=== PATIENT | female | born 1930 | race Caucasian/White ===

== ENCOUNTER 2016-11-24 03:31 | Emergency (ER) | payer OTHER ==
[~2016-11-24] VITALS: Ht 147.3 cm; Wt 64.9 kg
[~2016-11-24 03:31] MED LIST: ADULT LOW DOSE81 MG PO; BENADRYL25 MG PO; CALCIUM OYSTER500 MG PO; CARDIZEM CD180 MG PO; CELEXA40 MG PO; DUONEB 2.5-0.5 M3 ML INH; FENOFIBRATE160 MG PO; FISH OIL 1,0001 EAC5 PO; GABAPENTIN 100100 MG PO; HYDROCHLOROTH12.5 M1 PO; HYDROCHLOROTH12.5 MG PO; HYDROCODON-ACE1 EAC5 PO; IRON325 PO; LISINOPRIL20 MG PO; LUMIGAN2.5 M1; LUMIGAN2.5 M1 OP; MUCINEX TA600 MG/TA2 PO; MULTIVITAMINS PO; NORCO 5-325 TA1 EACH PO; PACERONE 200 M200 M1 PO; PERCOCET 7.5-31 EACH PO; PRAVASTATIN SOD40 MG PO; PREDNISONE 20 M20 MG; SUDAFED30 MG; TOPROL XL50 MG PO
== END 2016-11-24 03:58 ==
LOC: ER 03:31
DX: S00.83XA Contusion of other part of head, initial encounter (principal); M19.90 Unspecified osteoarthritis, unspecified site; G25.81 Restless legs syndrome; F03.90 Unspecified dementia, unspecified severity, without behavioral disturbance, psychotic disturbance, mood disturbance, and anxiety; Z90.89 Acquired absence of other organs; Z90.49 Acquired absence of other specified parts of digestive tract; Z86.2 Personal history of diseases of the blood and blood-forming organs and certain disorders involving the immune mechanism; Z91.81 History of falling; W18.30XA Fall on same level, unspecified, initial encounter; Y93.89 Activity, other specified; Y92.89 Other specified places as the place of occurrence of the external cause; Y99.8 Other external cause status

== ENCOUNTER 2017-08-30 07:50 | Inpatient (IN) | payer OTHER ==
[~2017-08-30] VITALS: Ht 154.9 cm; Wt 61.2 kg
--- NOTE | ~2017-08-30 | EKG ---
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 : 1930 Requested By: Doyle Stern Order Number: [id number] MD: Tristan Clemons Measurements Intervals [place] Rate: 89 P: 42 CA: 185 QRS: 7 QRSD: 99 T: 60 QT: 399 QTc: 486 Interpretive Statements Sinus rhythm Borderline prolonged QT interval Compared to ECG 06/25/2015 07:53:12 No significant changes Electronically Signed On 08-30-2017 10:40:12 CDT by Tristan Clemons [email or web address] <ELECTRONICALLY SIGNED> By: Tristan Clemons MD, [facility] 08/30/17 1040 0852 1 Tristan Clemons MD, FACC /EPI
--- NOTE | ~2017-08-30 | HC ---
[facility] [place] [address] CONSULTATION Name: YARA PACE Room #: 203-P [facility] IN M.R.#: [id number] Admission: 08/30/17 Attend Phys: Andrew Pena DO Discharge: Date of : 30 Report #: [id number] THIS REPORT FOR: //name// CC: Andrew Pena Ann-Marie Adams REASON FOR CONSULTATION: I was asked to evaluate concerning sepsis. HISTORY OF PRESENT ILLNESS: The patient is an 87-year-old with underlying dementia who resides at a residential unit. She was found lying on the ground next to her bed early this morning. She is brought in by EMS to the Emergency Room. Found to have temperature of 38.1, hemodynamically stable. She was unable to give any significant history. She states at this time that she feels reasonably well. Denies any headache, cough, sputum, nausea, vomiting or diarrhea. I am not sure how accurate, however, her history is. PAST MEDICAL HISTORY: Pulmonary fibrosis, dementia, restless leg syndrome, anemia, arthritis, frequent falls, cataract surgery, cholecystectomy, tonsillectomy. ALLERGIES: None known. MEDICATIONS: As noted on her MAR, having previously been on prednisone. Unclear when that was stopped. Currently, has been on Celexa, Neurontin, Cardizem, DuoNeb, Pacerone, , [place], Synthroid, aspirin, was given vancomycin, Levaquin and Zosyn in the Emergency Room. FAMILY HISTORY: Noncontributory. SOCIAL HISTORY: Nonsmoker, no significant alcohol intake. REVIEW OF SYSTEMS: As noted above with no bony injuries noted. No skin issues. PHYSICAL EXAMINATION: VITAL SIGNS: She is currently afebrile, hemodynamically stable. She was alert and cooperative. She is on 4 liters of oxygen per nasal cannula. SKIN: Unremarkable. LYMPH: Unremarkable. HEENT: Edentulous. NECK: Supple. LUNGS: Crackles in the mid chest inferiorly bilaterally. No consolidation or rub. HEART: Regular without appreciable murmur. ABDOMEN: Soft, nontender, no hepatosplenomegaly or mass. EXTREMITIES: No peripheral edema. NEUROLOGIC: Nonfocal. [facility] [address] [place] [address] CONSULTATION Name: YARA PACE Room #: 203-P [facility] IN .R.#: [id number] Admission: 08/30/17 Attend Phys: Andrew Pena DO Discharge: Date of : 30 Report #: [id number] LABORATORY STUDIES: On room air ABG showed a pO2 of 34, pCO2 of 41, pH 7.42. Urinalysis had bacteriuria and pyuria. Blood cultures and urine cultures are pending. Lactate was 1.1. Hemoglobin 8.6, platelet count 811,000. WBC 20,000, 81% segs. BNP was 1189. Troponin negative. Sodium 133, potassium 4.5, bicarbonate 28, creatinine 0.9. Liver function test normal. CT of the head negative. Chest x-ray, bilateral infiltrates with increased alveolar infiltrate in the left lower lung. IMPRESSION: An 87-year-old with underlying dementia with healthcare-associated infection, urinary tract and pneumonia considered at this time. I do not see any intra-abdominal issues otherwise. No evidence of cellulitis. Unclear if she has had a syncopal episode. We will treat for aspiration and healthcare-associated urinary tract infection. RECOMMENDATIONS: We will continue with vancomycin and Zosyn, Tamiflu. The patient has had a dose of Levaquin. We will check urine antigen, viral respiratory panel. Await urine culture and blood culture. Follow up CBC and chest x-ray. <ELECTRONICALLY SIGNED> By: Chuck Betancourt MD 08/31/17 1059 1155 1645 Chuck Betancourt MD /nt
--- NOTE | ~2017-08-30 | HC ---
[facility] [place] [address] CONSULTATION Name: YARA PACE Room #: 423-1 [facility] IN M.R.#: [id number] Admission: 08/30/17 Attend Phys: Andrew Pena DO Discharge: 09/10/17 Date of : 30 Report #: [id number] THIS REPORT FOR: //name// CC: Andrew Pena Ann-Marie Adams DATE OF SERVICE: 08/30/2017 IMPRESSION: 1. Healthcare-associated pneumonia. 2. Urinary tract infection. 3. Possible aspiration. 4. Dementia. 5. Leukocytosis. 6. Microcytic anemia. 7. Thrombocytosis. 8. Protein calorie malnutrition. 9. Acute respiratory failure. PLAN: IV fluids, antibiotics per ID, aerosol therapy, BiPAP p.r.n. HISTORY OF PRESENT ILLNESS: This is a very pleasant 87-year-old female who relates has had pneumonia before, found lying on floor next to her bed by report. The patient does not recall this. The patient complains of some shortness of breath. No definite chest pain, cough or sputum. CURRENT MEDICATIONS: Include Pacerone, diltiazem, aspirin, citalopram, Synthroid, vancomycin, Lovenox, Zosyn, gabapentin. PAST SURGICAL HISTORY: Includes cataract surgery, cholecystectomy, tonsillectomy. ALLERGIES: None known. SOCIAL HISTORY: . Negative tobacco, negative ETOH. FAMILY HISTORY: Negative for pulmonary disease. REVIEW OF SYSTEMS: History of hypertension, arthritis, chronic pain, hyperlipidemia, dementia, question pulmonary fibrosis and restless legs. PHYSICAL EXAMINATION: VITAL SIGNS: T-max 100.6, pulse 95, respirations 18, BP 124/56. EYES: Negative icterus. NECK: Negative JVD. LUNGS: Coarse. [facility] [address] [place] [address] CONSULTATION Name: YARA PACE Room #: 423-1 [facility] IN ..#: [id number] Admission: 08/30/17 Attend Phys: Andrew Pena DO Discharge: 09/10/17 Date of : 30 Report #: [id number] HEART: Regular. ABDOMEN: Bowel sounds present. EXTREMITIES: Showed no definite edema. LABORATORY DATA: A pH of 7.423, pCO2 of 41, pO2 of 34 on room air. Chest x-ray showed bilateral infiltrates, question fibrotic. CT head, no acute. INR 1.1. BUN 21, creatinine 0.9, albumin 2.5. Troponin less than 0.04. BNP 1189. White count 20.2, hemoglobin 8.6, platelets 811. We will follow closely with you. <ELECTRONICALLY SIGNED> By: Waqar Ricketts MD 09/12/17 2316 1804 11 Waqar Ricketts MD /nt
--- NOTE | ~2017-08-30 | DEA ---
[facility] [place] [address] SUMMARY Name: YARA PACE Room #: 423-1 ADM IN M.R.#: [id number] Admission: 08/30/17 Attend Phys: Andrew Pena DO Discharge: Date of : 30 Report #: [id number] THIS REPORT FOR: //name// CC: Andrew Pena Ann-Marie Adams DATE OF SERVICE: 09/10/2017 DATE AND TIME OF : 09/10/2017 at 11:57 a.m. HOSPITAL COURSE: The patient was an 87-year-old female with history of dementia, who presented to the ER status post fall. She was found lying next to her bed at her [facility] facility. The patient did require intubation due to acute hypoxemic respiratory failure secondary to pneumonia. Due to lack of improvement and after family meeting, it was decided to extubate her and provide comfort care only. She was extubated on 09/09/2017 and she did pass away under comfort care peacefully at the above date and time. The body was released to the family. <ELECTRONICALLY SIGNED> By: Andrew Pena DO 09/10/17 1236 1205 1220 Andrew Pena DO /nt
[2017-08-30 07:50] VITALS: BP 137/62
[2017-08-30 08:17] LABS: BE(vivo) 1.8 mmol/L (-2 to +3); HCO3 26.4 mmol/L (22.0-26.0); PCO2 41.3 mmHg (35.0-45.0); pH 7.423 (7.360-7.450); sO2 66.6 % (92.0-98.0)
[2017-08-30 08:25] LABS: HEMATOCRIT 28.9 % (37.0-47.0); HEMOGLOBIN 8.6 gm/dL (12.0-15.0); MCH 22.3 pg (26.0-34.0); MCHC 29.9 g/dL (28.0-37.0); MCV 74.4 fL (80.0-100.0); PLATELET COUNT 811 thou/uL (150-400); RBC 3.88 mil/uL (4.20-5.00); RDW 18.6 % (10.5-14.5); WBC 20.2 thou/uL (4.0-11.0)
[2017-08-30 08:38] LABS: CALCIUM 8.5 mg/dL (8.5-10.1); CREATININE 0.9 mg/dL (0.6-1.0); POTASSIUM 4.5 mmol/L (3.5-5.1)
[2017-08-30 08:39] LABS: APTT 23.7 Seconds (24.5-32.8); INR 1.1; PROTIME 10.8 Seconds (9.3-11.4)
[2017-08-30 08:44] LABS: ALBUMIN 2.5 g/dL (3.4-5.0); TOTAL BILIRUBIN 0.4 mg/dL (<0.1-1.0); TOTAL PROTEIN 7.6 g/dL (6.4-8.2)
[2017-08-30 08:46] LABS: URINE BILIRUBIN NEGATIVE (Negative); URINE BLOOD NEGATIVE (Negative); URINE COLOR YELLOW; URINE GLUCOSE-RANDOM* NEGATIVE (Negative); URINE KETONES NEGATIVE (Negative); URINE PROTEIN (DIPSTICK) TRACE (Negative); URINE UROBILINOGEN 0.2 E.U./dl (0.2-1.0)
[2017-08-30 08:47] LABS: URINE LEUKOCYTES-REFLEX 1+ (Negative); URINE NITRITE-REFLEX POSITIVE (Negative)
[2017-08-30 08:48] LABS: URINE CLARITY HAZY
[2017-08-30 08:50] LABS: ABSOLUTE NEUTROPHILS 16.4 thou/uL (1.4-8.2)
[2017-08-30 08:51] LABS: ANISOCYTOSIS 2+; HYPOCHROMASIA 2+; MICROCYTES 1+; POLYCHROMASIA OCCASIONAL
[2017-08-30 08:55] LABS: CASTS None Seen /LPF (None Seen); CRYSTALS None Seen /LPF (None Seen); SQUAMOUS 0-3 Few /LPF (0-3)
[2017-08-30 08:56] LABS: BACTERIA-REFLEX >30 Many /HPF (None Seen); URINE RBC None Seen /HPF (0-2); URINE WBC-REFLEX >25 Many /HPF (0-5)
[2017-08-30] MEDS ORDERED: XALATAN2.5 ML OPHTHALMIC (09:03)
[2017-08-30] MEDS ORDERED: NORCO 5-325 TA1 EACH PO (09:04)
[2017-08-30] MEDS ORDERED: SYNTHROID50 MCG PO (09:05)
[2017-08-30] MEDS ORDERED: MILK OF MA2400 MG/10 PO (09:06)
[2017-08-30] MEDS ORDERED: TYLENOL325 MG PO (09:06)
[2017-08-30 09:11] VITALS: BP 137/62
[2017-08-30 10:59] VITALS: BP 132/72
[2017-08-30 11:33] VITALS: BP 143/85
[2017-08-30 15:54] VITALS: BP 124/56
[2017-08-30 19:14] VITALS: BP 140/57
[2017-08-31] VITALS (8 sets, daily range): BP systolic 131–175; BP diastolic 57–79
[2017-08-31 03:51] LABS: EOSINOPHILS 0.3 % (0.0-3.0)
[2017-08-31 03:54] LABS: ABSOLUTE NEUTROPHILS 15.3 thou/uL (1.4-8.2); BASOPHILS 0.3 % (0.0-2.0); HEMATOCRIT 21.9 % (37.0-47.0); LYMPHOCYTES 4.1 % (24.0-44.0); MCH 22.2 pg (26.0-34.0); MCHC 30.2 g/dL (28.0-37.0); MCV 73.5 fL (80.0-100.0); POLYS 87.3 % (36.0-66.0); RBC 2.98 mil/uL (4.20-5.00); RDW 18.9 % (10.5-14.5); WBC 17.5 thou/uL (4.0-11.0)
[2017-08-31 04:02] LABS: CALCIUM 7.6 mg/dL (8.5-10.1); CREATININE 0.6 mg/dL (0.6-1.0)
[2017-08-31 04:33] LABS: POTASSIUM 3.3 mmol/L (3.5-5.1)
[2017-08-31 04:37] LABS: HEMOGLOBIN 6.6 gm/dL (12.0-15.0); PLATELET COUNT 689 thou/uL (150-400)
[2017-08-31 05:01] LABS: BE(vivo) -0.8 mmol/L (-2 to +3); HCO3 24.4 mmol/L (22.0-26.0); PO2 65.5 mmHg (80.0-100.0); pH 7.372 (7.360-7.450); sO2 92.4 % (92.0-98.0)
[2017-08-31 05:20] LABS: % SATURATION 5 % (20-39); IRON 10 ug/dL (50-170); TIBC 212 ug/dL (250-450)
[2017-08-31 05:55] LABS: FOLIC ACID 9.8 ng/mL (8.6-58.9)
[2017-08-31 07:16] LABS: ANISOCYTOSIS 2+; HYPOCHROMASIA 2+; MICROCYTES 1+; POLYCHROMASIA OCCASIONAL
[2017-08-31 13:01] LABS: HEMATOCRIT 28.7 % (37.0-47.0)
[2017-08-31 13:12] LABS: HEMOGLOBIN 8.8 gm/dL (12.0-15.0)
[2017-09-01 04:29] LABS: CALCIUM 8.5 mg/dL (8.5-10.1); CREATININE 0.6 mg/dL (0.6-1.0); POTASSIUM 4.2 mmol/L (3.5-5.1)
[2017-09-01 04:35] LABS: ABSOLUTE NEUTROPHILS 11.5 thou/uL (1.4-8.2); BASOPHILS 0.1 % (0.0-2.0); HEMATOCRIT 29.7 % (37.0-47.0); HEMOGLOBIN 9.2 gm/dL (12.0-15.0); MCH 23.8 pg (26.0-34.0); MCV 76.9 fL (80.0-100.0); MONOCYTES 2.5 % (1.0-8.0); POLYS 91.4 % (36.0-66.0); RBC 3.86 mil/uL (4.20-5.00); RDW 19.4 % (10.5-14.5); WBC 12.6 thou/uL (4.0-11.0)
[2017-09-01 04:48] LABS: PLATELET COUNT 808 thou/uL (150-400)
[2017-09-01 04:55] VITALS: BP 168/64
[2017-09-01 08:00] VITALS: BP 162/74
[2017-09-01 12:13] VITALS: BP 167/73
[2017-09-01 16:00] VITALS: BP 183/88
[2017-09-01 19:17] VITALS: BP 142/62
[2017-09-02 03:51] LABS: ABSOLUTE NEUTROPHILS 15.8 thou/uL (1.4-8.2); BASOPHILS 0.2 % (0.0-2.0); HEMATOCRIT 31.8 % (37.0-47.0); HEMOGLOBIN 9.6 gm/dL (12.0-15.0); LYMPHOCYTES 1.2 % (24.0-44.0); MCH 23.6 pg (26.0-34.0); MCHC 30.3 g/dL (28.0-37.0); MCV 77.9 fL (80.0-100.0); MONOCYTES 2.4 % (1.0-8.0); PLATELET COUNT 787 thou/uL (150-400); POLYS 96.2 % (36.0-66.0); RBC 4.09 mil/uL (4.20-5.00); RDW 20.2 % (10.5-14.5); WBC 16.5 thou/uL (4.0-11.0)
[2017-09-02 04:07] VITALS: BP 150/65
[2017-09-02 04:07] LABS: CALCIUM 8.7 mg/dL (8.5-10.1); CREATININE 0.7 mg/dL (0.6-1.0); POTASSIUM 3.2 mmol/L (3.5-5.1)
[2017-09-02 07:37] VITALS: BP 184/78
[2017-09-02 11:48] VITALS: BP 151/68
[2017-09-02 14:17] VITALS: BP 135/88
[2017-09-02 15:09] LABS: BE(vivo) 6.7 mmol/L (-2 to +3); HCO3 34.4 mmol/L (22.0-26.0); sO2 94.2 % (92.0-98.0)
[2017-09-02 15:10] LABS: PCO2 69.6 mmHg (35.0-45.0); pH 7.312 (7.360-7.450)
[2017-09-02 19:20] VITALS: BP 175/76
[2017-09-02 23:35] VITALS: BP 172/74
[2017-09-03] VITALS (19 sets, daily range): BP systolic 114–170; BP diastolic 46–70
[2017-09-03 03:38] LABS: HEMATOCRIT 30.7 % (37.0-47.0); HEMOGLOBIN 9.2 gm/dL (12.0-15.0); MCH 23.3 pg (26.0-34.0); MCHC 29.9 g/dL (28.0-37.0); MCV 77.9 fL (80.0-100.0); RBC 3.94 mil/uL (4.20-5.00); RDW 20.9 % (10.5-14.5); WBC 17.9 thou/uL (4.0-11.0)
[2017-09-03 03:49] LABS: CALCIUM 8.7 mg/dL (8.5-10.1); CREATININE 0.6 mg/dL (0.6-1.0); POTASSIUM 3.2 mmol/L (3.5-5.1)
[2017-09-03 10:33] LABS: ABSOLUTE NEUTROPHILS 13.4 thou/uL (1.4-8.2); HEMATOCRIT 28.4 % (37.0-47.0); HEMOGLOBIN 8.6 gm/dL (12.0-15.0); LYMPHOCYTES 1.9 % (24.0-44.0); MCH 23.4 pg (26.0-34.0); MCHC 30.1 g/dL (28.0-37.0); MCV 77.7 fL (80.0-100.0); MONOCYTES 5.1 % (1.0-8.0); RBC 3.66 mil/uL (4.20-5.00); RDW 20.5 % (10.5-14.5); WBC 14.4 thou/uL (4.0-11.0)
[2017-09-03 10:34] LABS: PLATELET COUNT 600 thou/uL (150-400)
[2017-09-03 10:46] LABS: CALCIUM 8.3 mg/dL (8.5-10.1); CREATININE 0.5 mg/dL (0.6-1.0)
[2017-09-03 11:33] LABS: POTASSIUM 2.9 mmol/L (3.5-5.1)
[2017-09-03 15:01] LABS: BE(vivo) 8.2 mmol/L (-2 to +3); HCO3 35.6 mmol/L (22.0-26.0); PO2 150.1 mmHg (80.0-100.0); pH 7.337 (7.360-7.450); sO2 98.7 % (92.0-98.0)
[2017-09-03 16:56] LABS: PCO2 67.9 mmHg (35.0-45.0)
[2017-09-03 23:07] LABS: ADENOVIRUS Negative (Negative); INFLUENZA A Negative (Negative); INFLUENZA B Negative (Negative); METAPNEUMOVIRUS Negative (Negative); PARAINFLUENZA 1 Negative (Negative); PARAINFLUENZA 2 Negative (Negative); PARAINFLUENZA 3 Negative (Negative); RHINOVIRUS Negative (Negative); RSV A Negative (Negative); RSV B Negative (Negative)
[2017-09-04] VITALS (24 sets, daily range): BP systolic 114–178; BP diastolic 42–74
[2017-09-04 05:14] LABS: BE(vivo) 6.9 mmol/L (-2 to +3); HCO3 34.1 mmol/L (22.0-26.0); PCO2 65.9 mmHg (35.0-45.0); PO2 82.7 mmHg (80.0-100.0); pH 7.332 (7.360-7.450); sO2 95.1 % (92.0-98.0)
[2017-09-04 05:38] LABS: ABSOLUTE NEUTROPHILS 9.5 thou/uL (1.4-8.2); BASOPHILS 0.3 % (0.0-2.0); EOSINOPHILS 0.1 % (0.0-3.0); HEMOGLOBIN 8.2 gm/dL (12.0-15.0); LYMPHOCYTES 2.9 % (24.0-44.0); MCH 24.1 pg (26.0-34.0); MCHC 30.3 g/dL (28.0-37.0); MCV 79.5 fL (80.0-100.0); MONOCYTES 4.4 % (1.0-8.0); PLATELET COUNT 553 thou/uL (150-400); POLYS 92.3 % (36.0-66.0); RBC 3.39 mil/uL (4.20-5.00); RDW 20.5 % (10.5-14.5); WBC 10.3 thou/uL (4.0-11.0)
[2017-09-04 05:47] LABS: CALCIUM 8.6 mg/dL (8.5-10.1); CREATININE 0.6 mg/dL (0.6-1.0); POTASSIUM 4.2 mmol/L (3.5-5.1)
[2017-09-05] VITALS (19 sets, daily range): BP systolic 111–176; BP diastolic 43–65
[2017-09-05 04:20] LABS: ABSOLUTE NEUTROPHILS 8.9 thou/uL (1.4-8.2); HEMATOCRIT 28.5 % (37.0-47.0); HEMOGLOBIN 8.5 gm/dL (12.0-15.0); LYMPHOCYTES 1.8 % (24.0-44.0); MCH 23.8 pg (26.0-34.0); MCHC 29.9 g/dL (28.0-37.0); MCV 79.4 fL (80.0-100.0); MONOCYTES 3.1 % (1.0-8.0); PLATELET COUNT 573 thou/uL (150-400); POLYS 95.1 % (36.0-66.0); RBC 3.59 mil/uL (4.20-5.00); RDW 21.2 % (10.5-14.5); WBC 9.4 thou/uL (4.0-11.0)
[2017-09-05 04:41] LABS: CALCIUM 8.5 mg/dL (8.5-10.1); CREATININE 0.5 mg/dL (0.6-1.0); POTASSIUM 3.8 mmol/L (3.5-5.1)
[2017-09-05 12:04] LABS: BE(vivo) 7.2 mmol/L (-2 to +3); HCO3 34.2 mmol/L (22.0-26.0); PCO2 64.7 mmHg (35.0-45.0); pH 7.341 (7.360-7.450); sO2 99.6 % (92.0-98.0)
[2017-09-06] VITALS (24 sets, daily range): BP systolic 108–169; BP diastolic 43–68
[2017-09-06 04:48] LABS: CALCIUM 8.3 mg/dL (8.5-10.1); CREATININE 0.5 mg/dL (0.6-1.0); POTASSIUM 3.7 mmol/L (3.5-5.1)
[2017-09-06 05:17] LABS: ABSOLUTE NEUTROPHILS 17.7 thou/uL (1.4-8.2); BASOPHILS 0.1 % (0.0-2.0); HEMATOCRIT 29.6 % (37.0-47.0); HEMOGLOBIN 8.7 gm/dL (12.0-15.0); LYMPHOCYTES 1.6 % (24.0-44.0); MCHC 29.3 g/dL (28.0-37.0); MCV 78.6 fL (80.0-100.0); MONOCYTES 2.6 % (1.0-8.0); PLATELET COUNT 585 thou/uL (150-400); POLYS 95.7 % (36.0-66.0); RBC 3.77 mil/uL (4.20-5.00); RDW 21.5 % (10.5-14.5); WBC 18.6 thou/uL (4.0-11.0)
[2017-09-06 06:13] LABS: ANISOCYTOSIS 2+; HYPOCHROMASIA 2+; POLYCHROMASIA 2+
[2017-09-06 06:14] LABS: OVALOCYTES 1+; POIKILOCYTOSIS 1+; TEARDROPS FEW
[2017-09-06 09:56] LABS: HCO3 36.8 mmol/L (22.0-26.0); PCO2 63.7 mmHg (35.0-45.0); PO2 82.1 mmHg (80.0-100.0); pH 7.379 (7.360-7.450); sO2 95.5 % (92.0-98.0)
[2017-09-06 13:22] LABS: BE(vivo) 10.5 mmol/L (-2 to +3); HCO3 38.1 mmol/L (22.0-26.0); PO2 73.1 mmHg (80.0-100.0); pH 7.346 (7.360-7.450); sO2 93.3 % (92.0-98.0)
[2017-09-06 13:23] LABS: PCO2 71.3 mmHg (35.0-45.0)
[2017-09-07] VITALS (29 sets, daily range): BP systolic 113–188; BP diastolic 44–82
[2017-09-07 05:39] LABS: ABSOLUTE NEUTROPHILS 17.4 thou/uL (1.4-8.2); BASOPHILS 1.3 % (0.0-2.0); HEMATOCRIT 29.6 % (37.0-47.0); HEMOGLOBIN 8.7 gm/dL (12.0-15.0); MCH 23.1 pg (26.0-34.0); MCHC 29.5 g/dL (28.0-37.0); MCV 78.4 fL (80.0-100.0); MONOCYTES 3.3 % (1.0-8.0); PLATELET COUNT 521 thou/uL (150-400); POLYS 94.4 % (36.0-66.0); RBC 3.77 mil/uL (4.20-5.00); RDW 21.3 % (10.5-14.5); WBC 18.5 thou/uL (4.0-11.0)
[2017-09-07 05:54] LABS: CALCIUM 8.1 mg/dL (8.5-10.1); CREATININE 0.5 mg/dL (0.6-1.0); POTASSIUM 3.5 mmol/L (3.5-5.1)
[2017-09-07 06:42] LABS: ANISOCYTOSIS 1+; HYPOCHROMASIA 1+
[2017-09-07 12:32] LABS: BE(vivo) 11.3 mmol/L (-2 to +3); HCO3 39.1 mmol/L (22.0-26.0); PO2 72.2 mmHg (80.0-100.0); pH 7.354 (7.360-7.450); sO2 93.2 % (92.0-98.0)
[2017-09-07 12:33] LABS: PCO2 71.8 mmHg (35.0-45.0)
[2017-09-08] VITALS (24 sets, daily range): BP systolic 107–171; BP diastolic 45–68
[2017-09-09] VITALS (7 sets, daily range): BP systolic 148–198; BP diastolic 60–76
[2017-09-10 07:43] VITALS: BP 144/69
== END 2017-09-10 16:29 | DRG 870 ==
LOC: ER 07:50 → EROBS 08:45 → 2N 08:45 → ICU 09-03 05:21 → 4E 09-09 08:00
PROVIDERS: Emergency Medicine; Family Medicine; Internal Medicine Pulmonary Disease; Nurse Practitioner Acute Care; Specialist
DX: A41.9 Sepsis, unspecified organism (principal); J18.9 Pneumonia, unspecified organism; J96.01 Acute respiratory failure with hypoxia; N39.0 Urinary tract infection, site not specified; E46 Unspecified protein-calorie malnutrition; E87.0 Hyperosmolality and hypernatremia; M19.90 Unspecified osteoarthritis, unspecified site; G25.81 Restless legs syndrome; K21.9 Gastro-esophageal reflux disease without esophagitis; F03.90 Unspecified dementia, unspecified severity, without behavioral disturbance, psychotic disturbance, mood disturbance, and anxiety; R65.20 Severe sepsis without septic shock; D50.9 Iron deficiency anemia, unspecified; D47.3 Essential (hemorrhagic) thrombocythemia; Z60.2 Problems related to living alone; M62.84 Sarcopenia; J84.10 Pulmonary fibrosis, unspecified; Z66 Do not resuscitate; Z51.5 Encounter for palliative care; Z79.899 Other long term (current) drug therapy; Z90.49 Acquired absence of other specified parts of digestive tract; Z98.42 Cataract extraction status, left eye; Z98.41 Cataract extraction status, right eye; Z68.25 Body mass index [BMI] 25.0-25.9, adult; Z79.82 Long term (current) use of aspirin
CPT/HCPCS: 10078; 10081; 10783